=== PATIENT | male | born 1965 ===

== ENCOUNTER 2018-01-06 05:58 | Day surgery (SDC) | payer OTHER ==
[~2018-01-06 05:58] MED LIST: HYZAAR 100-121 UDTAB PO; KLONOPIN0.125 MG/T PO; NORVASC5 MG PO; ONGLYZA5 MG PO
== END 2018-01-06 15:00 | disposition home or self-care (01) ==
LOC: CIR.AMB 05:58
DX: M75.122 Complete rotator cuff tear or rupture of left shoulder, not specified as traumatic (principal); M75.22 Bicipital tendinitis, left shoulder; M19.012 Primary osteoarthritis, left shoulder

== ENCOUNTER 2018-06-15 16:47 | Emergency (ER) | payer OTHER ==
[~2018-06-15] VITALS: Ht 185.4 cm; Wt 97.5 kg
== END 2018-06-15 18:43 | disposition home or self-care (01) ==
LOC: ER 16:47
DX: R10.11 Right upper quadrant pain (principal)

== ENCOUNTER 2018-12-15 08:45 | Day surgery (SDC) | payer OTHER | END 2018-12-15 16:20 | disposition home or self-care (01) | LOC: CIR.AMB 08:45 | DX: M75.121 Complete rotator cuff tear or rupture of right shoulder, not specified as traumatic (principal); M13.811 Other specified arthritis, right shoulder ==